=== PATIENT | female | born 1990 | race African-American/Black ===

== ENCOUNTER 2018-06-18 11:42 | Emergency (ER) | payer SELFPAY ==
--- NOTE | 2018-06-18 12:21 | ER Document Report ---
ED Medical Screen (RME) - General Chief Complaint: Psych Problem Stated Complaint: PSYCH EVAL/SUICIDAL IDEATION Time Seen by Provider: 06/18/18 12:16 Mode of Arrival: Ambulatory Information source: Patient TRAVEL OUTSIDE OF THE [place] IN LAST 30 DAYS: No - HPI Patient complains to provider of: K[facility]ON Notes: 06/18/18 12:20 Patient here with mobile crisis due to suicidal ideation. The patient was seen here few days ago for similar symptoms. She was given prescriptions for medications, but she did not fill them as she was afraid she was going to take all of them all at once in an attempt to hurt her self. She states that she hears voices that tell her to hurt herself. No homicidal ideation. Exam No distress, nontoxic. Nonfocal neuro exam. Lungs clear and equal throughout. Heart sounds normal. Plan IVC protocol initiated. An initial examination was made on the patient as part of the triage process, and it was determined a more comprehensive evaluation was necessary. Initial labs were ordered and patient was transferred to another provider in the ED who assumed care and finished evaluation and plan. - Related Data Allergies/Adverse Reactions: amoxicillin Allergy (Verified 06/15/18 10:38) Past Medical History Renal/ Medical History: Denies: Hx Peritoneal Dialysis Psychiatric Medical History: Reports: Hx Anxiety, Hx Depression, Hx Personality Disorder, Hx Post Traumatic Stress Disorder Physical Exam - Vital signs Vitals: Temp Pulse Resp BP Pulse Ox 98.3 F 85 18 115/65 99 06/18/18 11:50 06/18/18 11:50 06/18/18 11:50 06/18/18 11:50 06/18/18 11:50 Course - Vital Signs Vital signs: Temp Pulse Resp BP Pulse Ox 98.3 F 85 18 115/65 99 06/18/18 11:50 06/18/18 11:50 06/18/18 11:50 06/18/18 11:50 06/18/18 11:50
[2018-06-18 12:50] LABS: ABSOLUTE BASOPHILS # (AUTO) 0.1 10^3/uL (0.0-0.2); ABSOLUTE EOSINOPHILS # (AUTO) 0.1 10^3/uL (0.0-0.6); ABSOLUTE LYMPHOCYTES (AUTO) 1.9 10^3/uL (0.5-4.7); ABSOLUTE MONOCYTES (AUTO) 0.4 10^3/uL (0.1-1.4); ABSOLUTE NEUT (AUTO) 2.9 10^3/uL (1.7-8.2); EOSINOPHILS % (AUTO) 1.9 % (0-6); HEMATOCRIT 36.5 % (36.0-47.0); HEMOGLOBIN 12.1 g/dL (12.0-15.5); LYMPHOCYTES % (AUTO) 34.9 % (13-45); MEAN CORPUSCULAR HEMOGLOBIN 29.1 pg (27.0-33.4); MEAN CORPUSCULAR HGB CONC 33.1 g/dL (32.0-36.0); MEAN CORPUSCULAR VOLUME 88 fl (80-97); MONOCYTES % (AUTO) 7.2 % (3-13); PLATELET COUNT 199 10^3/uL (150-450); RED BLOOD COUNT 4.15 10^6/uL (3.72-5.28); RED CELL DISTRIBUTION WIDTH 14.4 % (11.5-14.0); TOTAL CELLS COUNTED % (AUTO) 100 %; WHITE BLOOD COUNT 5.3 10^3/uL (4.0-10.5)
[2018-06-18 12:59] LABS: APPEARANCE,URINE CLEAR; BILIRUBIN,URINE NEGATIVE (NEGATIVE); COLOR,URINE YELLOW; GLUCOSE, URINE NEGATIVE (NEGATIVE); KETONES,URINE NEGATIVE (NEGATIVE); LEUKOCYTE ESTERASE,URINE NEGATIVE (NEGATIVE); NITRITE,URINE NEGATIVE (NEGATIVE); PROTEIN,URINE NEGATIVE (NEGATIVE); URINE SPECIFIC GRAVITY 1.018; UROBILINOGEN,URINE NEGATIVE mg/dL (<2.0)
[2018-06-18 13:06] LABS: ALANINE AMINOTRANSFERASE 20 U/L (9-52); ALBUMIN 4.6 g/dL (3.5-5.0); ALKALINE PHOSPHATASE 72 U/L (38-126); ANION GAP 11 (5-19); ASPARTATE AMINO TRANSFERASE 33 U/L (14-36); BILIRUBIN,DIRECT 0.2 mg/dL (0.0-0.4); BILIRUBIN,TOTAL 0.6 mg/dL (0.2-1.3); BLOOD UREA NITROGEN 11 mg/dL (7-20); CALCIUM 9.6 mg/dL (8.4-10.2); CARBON DIOXIDE 25 mmol/L (22-30); CHLORIDE 105 mmol/L (98-107); GLUCOSE 75 mg/dL (75-110); POTASSIUM 3.9 mmol/L (3.6-5.0); SODIUM 140.8 mmol/L (137-145); TOTAL PROTEIN 8.1 g/dL (6.3-8.2); URINE AMPHETAMINES SCREEN NEGATIVE; URINE BARBITURATES SCREEN NEGATIVE; URINE BENZODIAZEPINES SCREEN NEGATIVE; URINE COCAINE SCREEN NEGATIVE; URINE MARIJUANA (THC) SCREEN UNCONFIRMED POSITIVE; URINE METHADONE SCREEN NEGATIVE; URINE PHENCYCLIDINE SCREEN NEGATIVE
[2018-06-18 13:07] LABS: ACETAMINOPHEN < 10 ug/mL (10-30); ALCOHOL < 10 mg/dL (NONE DETECTED); SALICYLATE < 1.0 mg/dL (2.0-20.0)
--- NOTE | 2018-06-18 15:58 | ER Document Report ---
ED Psych Disorder / Suicide <PARRISHDEMAR - Last Filed: 06/18/18 16:56> - General Mode of Arrival: Ambulatory TRAVEL OUTSIDE OF THE [place].S. IN LAST 30 DAYS: No <DIPTI KIMBLE - Last Filed: 06/18/18 19:17> - General Chief Complaint: Psych Problem Stated Complaint: PSYCH EVAL/SUICIDAL IDEATION Time Seen by Provider: 06/18/18 12:16 Primary Care Provider: [facility] [Outside] - Follow up in 3-5 days [facility] [Outside] - Follow up as needed LOCALMD,NO [Primary Care Provider] - Follow up as needed Notes: Patient says that she is feeling depressed and suicidal. Has been feeling this way for a couple of months. Says she was seen here about 4 days ago and we prescribed Zyprexa. She said that she is concerned she might take those pills. She has tried overdosing on medications in the past. Patient has diagnosis of anxiety, depression, PTSD, and personality disorder. (DIPTI KIMBLE) - Related Data Allergies/Adverse Reactions: amoxicillin Allergy (Verified 06/15/18 10:38) Past Medical History - General Information source: Patient - Social History Smoking Status: Never Smoker Frequency of alcohol use: None Drug Abuse: Marijuana Family History: Reviewed & Not Pertinent Patient has suicidal ideation: Yes Patient has homicidal ideation: No Pulmonary Medical History: Reports: Hx Asthma Renal/ Medical History: Denies: Hx Peritoneal Dialysis Psychiatric Medical History: Reports: Hx Anxiety, Hx Depression, Hx Personality Disorder, Hx Post Traumatic Stress Disorder <DIPTI KIMBLE - Last Filed: 06/18/18 19:17> Review of Systems <DIPTI KIMBLE - Last Filed: 06/18/18 19:17> - Review of Systems Notes: CONSTITUTIONAL : Denies fever. CARDIOVASCULAR: Denies chest pain. RESPIRATORY: Denies cough, chest congestion, or shortness of breath. GASTROINTESTINAL: Denies abdominal pain or nausea, vomiting, or diarrhea. GENITOURINARY: Denies difficulty or painful urinating, urinary frequency, blood in urine. (DIPTI KIMBLE) Physical Exam <DIPTI KIMBLE - Last Filed: 06/18/18 19:17> - Vital signs Vitals: Temp Pulse Resp BP Pulse Ox 98.3 F 85 18 115/65 99 06/18/18 11:50 06/18/18 11:50 06/18/18 11:50 06/18/18 11:50 06/18/18 11:50 Notes: PHYSICAL EXAMINATION: GENERAL: Well-appearing, no acute distress. Appears depressed. HEAD: Atraumatic, normocephalic. NECK: Normal range of motion, supple. LUNGS: Breath sounds clear and equal bilaterally. HEART: Regular rate and rhythm without murmurs heard. ABDOMEN: Soft, nontender. No guarding or rebound or masses felt. (DIPTI KIMBLE) Course - Laboratory Result Diagrams: 06/18/18 12:33 06/18/18 12:33 <DEMAR PARRISH - Last Filed: 06/18/18 16:56> - Laboratory Result Diagrams: 06/18/18 12:33 06/18/18 12:33 <DIPTI KIMBLE - Last Filed: 06/18/18 19:17> - Re-evaluation Re-evalutation: 06/18/18 15:58 Mental health consulted. 06/18/18 19:16 Mental health assessed the patient and feel that she can be discharged and managed as an outpatient. Patient appears to be medically stable for discharge. Kanika Kimble MD (DIPTI KIMBLE) - Vital Signs Vital signs: Temp Pulse Resp BP Pulse Ox 98.2 F 61 18 120/71 100 06/18/18 17:18 06/18/18 17:18 06/18/18 17:18 06/18/18 17:18 06/18/18 17:18 - Laboratory Laboratory results interpreted by me: 06/18/18 06/18/18 12:33 12:33 RDW 14.4 H Salicylates < 1.0 L Acetaminophen < 10 L Discharge <DEMAR PARRISH - Last Filed: 06/18/18 16:56> <DIPTI KIMBLE - Last Filed: 06/18/18 19:17> - Discharge Clinical Impression: Suicidal ideation, Borderline personality disorder Bipolar disorder, unspecified Qualifiers: Active/Remission status: remission status unspecified Qualified Code(s): F31.9 - Bipolar disorder, unspecified Condition: Stable Disposition: HOME, SELF-CARE Additional Instructions: You have been evaluated both medical and behavioral health teams and have been deemed appropriate for discharge. You are highly encouraged to follow through with outpatient mental health services in the form of therapeutic services such as CBT or DBT. CBT and DBT have high success in addressing symptoms for both borderline personality disorder and bipolar disorder such as helping you interpret your environment, identify triggers, and building positive coping skills. If you are concerned about misuse of your prescription medications it is recommended to talk with your outpatient mental health provider about options for a monthly decanoate shot to control your symptoms. At this time, you do not meet involuntary commitment per [facility] and as a medical hospital we are unable to place or transport voluntary placements. AT ANY TIME, IF YOUR SYMPTOMS CHANGE SIGNIFICANTLY OR WORSEN OR YOU DEVELOP NEW SYMPTOMS, RETURN TO THE EMERGENCY DEPARTMENT IMMEDIATELY FOR RE-EVALUATION. Referrals: LOCALMD,NO [Primary Care Provider] - Follow up as needed [facility] [Outside] - Follow up as needed [facility] [Outside] - Follow up in 3-5 days
[2018-06-18 17:21] VITALS: BP 120/71
--- NOTE | 2018-06-18 18:52 | EKG REPORT ---
SEVERITY:- NORMAL ECG - SINUS RHYTHM : Confirmed by: Gisel Donis 18-Jun-2018 18:51:40
== END 2018-06-18 17:26 | disposition home or self-care (01) ==
LOC: ER 11:42
DX: R45.851 Suicidal ideations (principal); F60.3 Borderline personality disorder; F31.9 Bipolar disorder, unspecified; Z88.0 Allergy status to penicillin
CPT/HCPCS: 36415; 80053; 80307; 81001; 84703; 85025; 93005; 93010; 99284

== ENCOUNTER 2018-07-24 11:26 | Emergency (ER) | payer SELFPAY ==
[2018-07-24 11:48] VITALS: BP 115/64
--- NOTE | 2018-07-24 12:05 | ER Document Report ---
ED Medical Screen (RME) - General Chief Complaint: Suicidal Ideation Stated Complaint: PSYCH EVAL Time Seen by Provider: 07/24/18 11:56 Primary Care Provider: SARA MEZA [Primary Care Provider] - Follow up as needed Notes: Patient is a 27-year-old female presents to the emergency department suicidal and homicidal ideations. Patient states she wants to self-harm and also has homicidal ideations. IVC protocol placed. Nurse is currently alerting security to sit with the patient due to her homicidal ideations. GENERAL: Alert, interacts well. Cooperative PSYCH: Flat affect, depressed mood. I have greeted and performed a rapid initial assessment of this patient. A comprehensive ED assessment and evaluation of the patient, analysis of test results and completion of the medical decision making process will be conducted by additional ED providers. This medical record was dictated with voice recognizing software. There may be grammatical, syntax errors that are unintended. TRAVEL OUTSIDE OF THE U.S[place] IN LAST 30 DAYS: No - Related Data Allergies/Adverse Reactions: amoxicillin Allergy (Verified 07/24/18 11:27) Past Medical History - Social History Frequency of alcohol use: None Drug Abuse: Marijuana Pulmonary Medical History: Reports: Hx Asthma Renal/ Medical History: Denies: Hx Peritoneal Dialysis Psychiatric Medical History: Reports: Hx Anxiety, Hx Depression, Hx Personality Disorder, Hx Post Traumatic Stress Disorder Physical Exam - Vital signs Vitals: Temp Pulse Resp BP Pulse Ox 98.6 F 70 17 115/64 100 07/24/18 11:47 07/24/18 11:47 07/24/18 11:47 07/24/18 11:47 07/24/18 11:47 Course - Vital Signs Vital signs: Temp Pulse Resp BP Pulse Ox 98.6 F 70 17 115/64 100 07/24/18 11:47 07/24/18 11:47 07/24/18 11:47 07/24/18 11:47 07/24/18 11:47 Doctor's Discharge - Discharge Referrals: SARA MEZA [Primary Care Provider] - Follow up as needed
[2018-07-24 12:47] LABS: ABSOLUTE EOSINOPHILS # (AUTO) 0.1 10^3/uL (0.0-0.6); ABSOLUTE LYMPHOCYTES (AUTO) 1.7 10^3/uL (0.5-4.7); ABSOLUTE MONOCYTES (AUTO) 0.3 10^3/uL (0.1-1.4); ABSOLUTE NEUT (AUTO) 2.1 10^3/uL (1.7-8.2); BASOPHILS % (AUTO) 1.1 % (0-2); EOSINOPHILS % (AUTO) 2.4 % (0-6); HEMOGLOBIN 12.5 g/dL (12.0-15.5); LYMPHOCYTES % (AUTO) 40.2 % (13-45); MEAN CORPUSCULAR HEMOGLOBIN 28.8 pg (27.0-33.4); MEAN CORPUSCULAR VOLUME 87 fl (80-97); MONOCYTES % (AUTO) 6.7 % (3-13); PLATELET COUNT 234 10^3/uL (150-450); RED BLOOD COUNT 4.36 10^6/uL (3.72-5.28); RED CELL DISTRIBUTION WIDTH 13.4 % (11.5-14.0); SEGMENTED NEUTROPHILS % (AUTO) 49.6 % (42-78); TOTAL CELLS COUNTED % (AUTO) 100 %; WHITE BLOOD COUNT 4.3 10^3/uL (4.0-10.5)
[2018-07-24] MEDS ORDERED: OLANZAPINE 5 MG TABLET PO ONE (12:53)
[2018-07-24 13:04] LABS: ALANINE AMINOTRANSFERASE 19 U/L (9-52); ALBUMIN 4.7 g/dL (3.5-5.0); ALKALINE PHOSPHATASE 81 U/L (38-126); ANION GAP 12 (5-19); ASPARTATE AMINO TRANSFERASE 25 U/L (14-36); BILIRUBIN,DIRECT 0.3 mg/dL (0.0-0.4); BILIRUBIN,TOTAL 0.3 mg/dL (0.2-1.3); BLOOD UREA NITROGEN 12 mg/dL (7-20); CALCIUM 9.6 mg/dL (8.4-10.2); CARBON DIOXIDE 24 mmol/L (22-30); CHLORIDE 106 mmol/L (98-107); GLUCOSE 72 mg/dL (75-110); TOTAL PROTEIN 7.6 g/dL (6.3-8.2)
--- NOTE | 2018-07-24 13:06 | ER Document Report ---
ED Psych Disorder / Suicide <PARRISHDEMAR - Last Filed: 07/24/18 13:25> - General TRAVEL OUTSIDE OF THE [place] IN LAST 30 DAYS: No <DIPTI KIMBLE - Last Filed: 07/24/18 18:43> - General Chief Complaint: Suicidal Ideation Stated Complaint: PSYCH EVAL Time Seen by Provider: 07/24/18 11:56 Primary Care Provider: [facility] [Outside] - Follow up as needed [facility] [Outside] - Follow up as needed LOCAL,NO [NO LOCAL MD] - Follow up as needed Notes: Patient is here because she says she needs refills for her psychiatric medications. She is been out of both her Cogentin and Zyprexa for a couple of weeks. She has been told by her local provider that they cannot see her before sometime in August. Patient denies suicidal ideation. Patient has not been ill in any way recently. No fevers, etc. (DIPTI KIMBLE) - Related Data Allergies/Adverse Reactions: amoxicillin Allergy (Verified 07/24/18 11:27) Past Medical History - Social History Smoking Status: Never Smoker Frequency of alcohol use: None Drug Abuse: Marijuana Family History: Reviewed & Not Pertinent Patient has suicidal ideation: Yes - see nursing note Patient has homicidal ideation: Yes Pulmonary Medical History: Reports: Hx Asthma Psychiatric Medical History: Reports: Hx Anxiety, Hx Depression, Hx Personality Disorder, Hx Post Traumatic Stress Disorder <DIPTI KIMBLE - Last Filed: 07/24/18 18:43> Review of Systems <DIPTI KIMBLE - Last Filed: 07/24/18 18:43> - Review of Systems Notes: CONSTITUTIONAL : Denies fever. CARDIOVASCULAR: Denies chest pain. RESPIRATORY: Denies cough, chest congestion, or shortness of breath. GASTROINTESTINAL: Denies abdominal pain or nausea, vomiting, or diarrhea. GENITOURINARY: Denies difficulty or painful urinating, urinary frequency, blood in urine. (DIPTI KIMBLE) Physical Exam - Vital signs Interpretation: Normal <DIPTI KIMBLE - Last Filed: 07/24/18 18:43> - Vital signs Vitals: Temp Pulse Resp BP Pulse Ox 98.6 F 70 17 115/64 100 07/24/18 11:47 07/24/18 11:47 07/24/18 11:47 07/24/18 11:47 07/24/18 11:47 Notes: PHYSICAL EXAMINATION: GENERAL: Well-appearing, no acute distress. HEAD: Atraumatic, normocephalic. NECK: Normal range of motion, supple. LUNGS: Breath sounds clear and equal bilaterally. HEART: Regular rate and rhythm without murmurs heard. ABDOMEN: Soft, nontender. No guarding or rebound or masses felt. (DIPTI KIMBLE) Course - Laboratory Result Diagrams: 07/24/18 12:17 07/24/18 12:17 <DEMAR PARRISH - Last Filed: 07/24/18 13:25> - Laboratory Result Diagrams: 07/24/18 12:17 07/24/18 12:17 <DIPTI KIMBLE - Last Filed: 07/24/18 18:43> - Vital Signs Vital signs: Temp Pulse Resp BP Pulse Ox 98.6 F 70 17 115/64 100 07/24/18 11:47 07/24/18 11:47 07/24/18 11:47 07/24/18 11:47 07/24/18 11:47 - Laboratory Laboratory results interpreted by me: 07/24/18 07/24/18 12:17 12:17 Glucose 72 L Urine Protein 100 H Urine Blood LARGE H Ur Leukocyte Esterase TRACE H Urine Ascorbic Acid 20 H Salicylates < 1.0 L Acetaminophen < 10 L Discharge <DEMAR PARRISH - Last Filed: 07/24/18 13:25> <DIPTI KIMBLE - Last Filed: 07/24/18 18:43> - Discharge Clinical Impression: Depression Condition: Stable Disposition: HOME, SELF-CARE Additional Instructions: You have been evaluated both medical and behavioral health teams and have been deemed appropriate for discharge. You have been provided a prescription for Zyprexa 5 mg twice daily and Cogentin 1 mg daily; please take as directed. You are encouraged to follow through with your appointment for outpatient mental services with [facility]. DEPRESSION: Your evaluation reveals that you have mental depression. While symptoms may be vague, they often include disturbance of sleep, fatigue, loss of appetite, and general loss of interest in life. While depression may be a side effect of drugs, or a reaction to a major change in your life, many cases have no known cause. If depression is acute, and related to a major loss in your life, you can expect it to clear completely with time. If you have been depressed a long time, are prone to repeated bouts of depression or low mood, or have been thinking of suicide, get help. Depression can be treated with anti-depressant medication and counselling. Long-term depression will often take a few weeks to clear, even with appropriate medication. Follow-up care is important. SUICIDAL IDEATION: Suicidal ideation is a common medical term for thoughts about suicide, which may be as detailed as a formulated plan, without the suicidal act itself. Although most people who undergo suicidal ideation do not commit suicide, some go on to make suicide attempts. The range of suicidal ideation varies greatly from fleeting to detailed planning, role playing, and unsuccessful attempts. While thoughts about suicide are common, most people do not carry out serious actions to commit suicide. Based upon your evaluation and discussion with you, we do not believe you are currently at risk to act upon your thoughts of suicide. You have agreed to return to the Emergency Department, at any time, if you feel inclined to act upon your suicidal thoughts. FOLLOW-UP CARE: If you have been referred to a physician for follow-up care, call the [facility] for an appointment as you were instructed or within the next two days. If you experience worsening or a significant change in your symptoms, notify the physician immediately or return to the Emergency Department at any time for re-evaluation. Prescriptions: Benztropine Mesylate [Cogentin 1 mg Tablet] 1 mg PO DAILY #30 tablet Olanzapine [Zyprexa 5 mg Tablet] 5 mg PO BID #60 tablet Referrals: SUSANA,NO [NO LOCAL MD] - Follow up as needed [facility] [Outside] - Follow up as needed [facility] [[facility]] - Follow up as needed
[2018-07-24 13:09] LABS: ACETAMINOPHEN < 10 ug/mL (10-30); ALCOHOL < 10 mg/dL (NONE DETECTED); SALICYLATE < 1.0 mg/dL (2.0-20.0)
--- NOTE | 2018-07-24 13:11 | PSYCHOLOGICAL NOTE ---
Psych Note - Psych Note Date seen by psych provider: 07/24/18 Time seen by psych provider: 12:45 - 1300 Psych Note: Reason for Consult: Suicidal and Homicidal ideation Patient is a 27-year-old female presents to the emergency department suicidal and homicidal ideations. Patient states she wants to self-harm and also has homicidal ideations. Patient reports that she just got a job at [employer] and has been very excited about this however is looking at having to move. She reports that her father is unable to help her so is been very stressed. She requests assistance in getting back on the medications because she has been unable to start outpatient mental health services. Patient confirms she has contacted [facility] and currently on their wait list for August appointment. Patient discloses that the medication she received from [facility] really helped and is hoping to get assistance in a prescription to help with increased stressors until she can get into outpatient mental services. Patient is alert and orientated to person, place, time and circumstance. Mood is dysphoric with congruent affect. Patient endorses passive suicidal and homicidal ideation i.e. no plans means or intent. Patient confirms this is chronic when not medicated. Delusions are absent behaviors congruent with an intact reality based presentation I organized and linear thought process. Eye contact was well-maintained. Conversational speech is within normal rate, tone and prosody. Intellectual abilities appear to be within the average range. Attention and concentration are good. Insight, judgment, impulse control are currently good as evidenced by patient being able to identify increase in triggers, following up with recommendations, coming to [facility] for assistance until outpatient services can start. Medication recommendations per [facility]'s contracted psychiatrist Dr. Josemanuel EUBANKS are as follows: Zyprexa 5 mg twice daily Cogentin 1 mg daily Borderline personality disorder per history provided by patient Major depressive disorder per history provided by patient PTSD per history provided by patient Impression\plan: Patient is cleared from acute psychiatric services. Patient does not meet IVC criteria per [place] 120 2C. Patient reports passive suicidal and homicidal ideation i.e. no plans means or intent. Patient requests assistance in refilling medications recently provided by the behavioral health team here at [facility]. She discloses they work well however she has not been able to follow-up with outpatient services. Patient confirms she has made contact with [facility] and is currently on their wait list for an appointment in August. Patient identifies positive changes of having a job however reports she is looking at moving and has been stressed and overwhelmed because she must move herself since her father is unable to assist. Patient identified increased stressors and immediately came to the emergency department for further assistance since she is wait listed for outpatient mental health services. Dr. Buckner was consulted and the care management of this patient; attending physicians in agreement with recommendations and disposition.
[2018-07-24 13:16] LABS: APPEARANCE,URINE TURBID; BILIRUBIN,URINE NEGATIVE (NEGATIVE); COLOR,URINE YELLOW; GLUCOSE, URINE NEGATIVE (NEGATIVE); KETONES,URINE NEGATIVE (NEGATIVE); LEUKOCYTE ESTERASE,URINE TRACE (NEGATIVE); NITRITE,URINE NEGATIVE (NEGATIVE); PROTEIN,URINE 100 mg/dL (NEGATIVE); URIC ACID CRYSTALS,URINE MODERATE /HPF; URINE SPECIFIC GRAVITY 1.031; UROBILINOGEN,URINE NEGATIVE mg/dL (<2.0)
[2018-07-24 13:37] LABS: URINE AMPHETAMINES SCREEN NEGATIVE; URINE BARBITURATES SCREEN NEGATIVE; URINE BENZODIAZEPINES SCREEN NEGATIVE; URINE COCAINE SCREEN NEGATIVE; URINE MARIJUANA (THC) SCREEN UNCONFIRMED POSITIVE; URINE METHADONE SCREEN NEGATIVE; URINE PHENCYCLIDINE SCREEN NEGATIVE
--- NOTE | 2018-07-24 17:31 | EKG REPORT ---
SEVERITY:- BORDERLINE ECG - SINUS RHYTHM MINIMAL ST DEPRESSION, INFERIOR LEADS : Confirmed by: Gil Larsen MD 24-Jul-2018 17:30:32
== END 2018-07-24 14:46 | disposition home or self-care (01) ==
LOC: ER 11:26
DX: F32.9 Major depressive disorder, single episode, unspecified (principal); Z88.0 Allergy status to penicillin; Z76.0 Encounter for issue of repeat prescription
CPT/HCPCS: 36415; 80053; 80307; 81001; 84703; 85025; 93005; 93010; 99285

== ENCOUNTER 2018-08-09 10:10 | Emergency (ER) | payer SELFPAY ==
[2018-08-09] MEDS ORDERED: DIPHENHYDRAMINE HCL 50 MG/ML VIAL IV ONE ×2 (10:44→11:22)
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
--- NOTE | 2018-08-09 10:59 | ER Document Report ---
Addendum entered and electronically signed by JERRY SANCHEZ DO 08/10/18 10:51: Discharge - Discharge Clinical Impression: Intentional overdose of drug in tablet form, Suicidal ideations, Marijuana abuse Depression Qualifiers: Depression Type: unspecified Qualified Code(s): F32.9 - Major depressive disorder, single episode, unspecified Condition: Stable Disposition: HOME, SELF-CARE Additional Instructions: Follow up with your [id number] hours for further care or return to the ED IMMEDIATELY if symptoms worsen or you have any concerns. If you cannot afford to follow up with your primary care physician a list of low cost clinics have be en provided at the end of your discharge papers as well. Most prescribed medications have multiple side effects. The safest thing to do is when filling your prescription speak to your pharmacist regarding possible interactions with your normal home medications and over the counter medications such as Ibuprofen, Tylenol, Benadryl. If you experience any symptoms that cause you discomfort or concern you should discontinue the medication immediately and return to the emergency room or call your primary care physician. You have been evaluated both medical and behavioral health teams and been deemed appropriate for discharge. You have an appointment on 08/17/2018 with [facility]; it is highly encouraged to follow through with this appointment. Please discuss engaging in CBT or DBT with your provider to help reinterpret your environment, build positive coping skills, and learn triggers. DEPRESSION: Your evaluation reveals that you have mental depression. While symptoms may be vague, they often include disturbance of sleep, fatigue, loss of appetite, and general loss of interest in life. While depression may be a side effect of drugs, or a reaction to a major change in your life, many cases have no known cause. If depression is acute, and related to a major loss in your life, you can expect it to clear completely with time. If you have been depressed a long time, are prone to repeated bouts of depression or low mood, or have been thinking of suicide, get help. Depression can be treated with anti-depressant medication and counselling. Long-term depression will often take a few weeks to clear, even with appropriate medication. Follow-up care is important. SUICIDAL IDEATION: Suicidal ideation is a common medical term for thoughts about suicide, which may be as detailed as a formulated plan, without the suicidal act itself. Although most people who undergo suicidal ideation do not commit suicide, some go on to make suicide attempts. The range of suicidal ideation varies greatly from fleeting to detailed planning, role playing, and unsuccessful attempts. While thoughts about suicide are common, most people do not carry out serious actions to commit suicide. Based upon your evaluation and discussion with you, we do not believe you are currently at risk to act upon your thoughts of suicide. You have agreed to return to the Emergency Department, at any time, if you feel inclined to act upon your suicidal thoughts. FOLLOW-UP CARE: If you have been referred to a physician for follow-up care, call the physici ans office for an appointment as you were instructed or within the next two days. If you experience worsening or a significant change in your symptoms, notify the physician immediately or return to the Emergency Department at any time for re-evaluation. Referrals: [facility] [Outside] - 08/17/18 [facility] [Outside] - Follow up as needed Scribe Attestation: 08/09/18 11:01 I personally performed the services described in the documentation, reviewed and edited the documentation which was dictated to the scribe in my presence, and it accurately records my words and actions. Addendum entered and electronically signed by DEMAR PARRISH LCSWA 08/10/18 10:44: Discharge - Discharge Clinical Impression: Intentional overdose of drug in tablet form, Suicidal ideations, Marijuana abuse Depression Qualifiers: Depression Type: unspecified Qualified Code(s): F32.9 - Major depressive disorder, single episode, unspecified Condition: Stable Disposition: HOME, SELF-CARE Additional Instructions: You have been evaluated both medical and behavioral health teams and been deemed appropriate for discharge. You have an appointment on 08/17/2018 with [facility]; it is highly encouraged to follow through with this appointment. Please discuss engaging in CBT or DBT with your provider to help reinterpret your environment, build positive coping skills, and learn triggers. DEPRESSION: Your evaluation reveals that you have mental depression. While symptoms may be vague, they often include disturbance of sleep, fatigue, loss of appetite, and general loss of interest in life. While depression may be a side effect of drugs, or a reaction to a major change in your life, many cases have no known cause. If depression is acute, and related to a major loss in your life, you can expect it to clear completely with time. If you have been depressed a long time, are prone to repeated bouts of depression or low mood, or have been thinking of suicide, get help. Depression can be treated with anti-depressant medication and counselling. Long-term depression will often take a few weeks to clear, even with appropriate medication. Follow-up care is important. SUICIDAL IDEATION: Suicidal ideation is a common medical term for thoughts about suicide, which may be as detailed as a formulated plan, without the suicidal act itself. Although most people who undergo suicidal ideation do not commit suicide, some go on to make suicide attempts. The range of suicidal ideation varies greatly from fleeting to detailed planning, role playing, and unsuccessful attempts. While thoughts about suicide are common, most people do not carry out seri ous actions to commit suicide. Based upon your evaluation and discussion with you, we do not believe you are currently at risk to act upon your thoughts of suicide. You have agreed to return to the Emergency Department, at any time, if you feel inclined to act upon your suicidal thoughts. FOLLOW-UP CARE: If you have been referred to a physician for follow-up care, call the physicians office for an appointment as you were instructed or within the next two days. If you experience worsening or a significant change in your symptoms, notify the physician immediately or return to the Emergency Department at any time for re-evaluation. Referrals: [facility] [Outside] - Follow up as needed [facility] [Outside] - 08/17/18 Scribe Attestation: 08/09/18 11:01 I personally performed the services described in the documentation, reviewed and edited the documentation which was dictated to the scribe in my presence, and it accurately records my words and actions. Original Note: Entered by SOULEYMANE BURGESS SCRIBE 08/09/18 1045 Acting as scribe for:TYRONE FORBES MD ED Psych Disorder / Suicide - General Chief Complaint: Overdose Stated Complaint: POSSIBLE OVERDOSE Time Seen by Provider: 08/09/18 10:21 Mode of Arrival: Medic Information source: Patient, [facility] Records Notes: 28-year-old female that presents to the emergency department today after an attempted overdose just prior to arrival. Patient reports taking approximately #30 5mg Zyprexa at around 1000 this morning. Patient states that she began to panic over her living situation this morning which is what caused her to become suicidal this morning. Patient states her father got a job here approximately x2 months ago and she moved here with him. The patient has been seen here x3 prior times over the last x2 months for psychiatric evaluations and she does endorse being depressed for several months. Patient states that her father is now moving to [place] and she will no longer have a place to stay here. Patient states her mom lives in [place]. Patient states that her father will not be taking her with him to [place] and her mother will not let her move in with her in [place]. Patient states she has been taking her Zyprexa and Cogentin as prescribed. TRAVEL OUTSIDE OF THE [place] IN LAST 30 DAYS: No - Related Data Allergies/Adverse Reactions: amoxicillin Allergy (Verified 07/24/18 11:27) Past Medical History - General Information source: Patient, [facility] Records - Social History Smoking Status: Never Smoker Cigarette use (# per day): No Chew tobacco use (# tins/day): No Frequency of alcohol use: None Drug Abuse: None Occupation: [employer] Lives with: Parents - currently, but father is leaving town and she will be homeless Family History: Reviewed & Not Pertinent Pulmonary Medical History: Reports: Hx Asthma Psychiatric Medical History: Reports: Hx Anxiety, Hx Depression, Hx Personality Disorder, Hx Post Traumatic Stress Disorder Surgical Hx: Negative Review of Systems - Review of Systems Constitutional: See HPI, Other - Reports taking approximately #30 5mg zyprexa just prior to arrival at 1000 EENT: No symptoms reported Cardiovascular: No symptoms reported Respiratory: No symptoms reported Gastrointestinal: No symptoms reported Genitourinary: No symptoms reported Female Genitourinary: Last menstrual period - July 22 Musculoskeletal: No symptoms reported Skin: No symptoms reported Hematologic/Lymphatic: No symptoms reported Neurological/Psychological: See HPI, Depression, Anxiety, Suicidal ideation -: Yes All other systems reviewed and negative Physical Exam - Vital signs Vitals: Resp Pulse Ox 17 100 08/09/18 10:24 08/09/18 10:24 - Notes Notes: Physical Exam: General: Tearful. See psych exam. HEENT: Normocephalic. Atraumatic. PERRL. Extraocular movements intact. Oropharynx clear. Neck: Supple. Non-tender. Respiratory: No respiratory distress. Clear and equal breath sounds bilaterally. Cardiovascular: Regular rate and rhythm. Abdominal: Normal Inspection. Non-tender. No distension. Normal Bowel Sounds. Back: Non-tender. No deformity or step off. Extremities: Moves all four extremities. Upper extremities: Normal inspection. Normal ROM. Lower extremities: Normal inspection. No edema. Normal ROM. Neurological: Normal cognition. AAOx4. Normal speech. Psychological: Depressed. Flat affect. Anxious. Tearful. Skin: Warm. Dry. Normal color. Course - Re-evaluation Re-evalutation: 08/09/18 14:53 There was recommendation from the psychology staff to give long-acting Haldol IM along with Cogentin daily and Zyprexa 5 mg twice daily. Given that the half- life of Zyprexa is 21 to 54 hours, and we feel confident that she did ingest at least 10 tablets, she will be supratherapeutic for at least the next 2 to 3 days. We will hold on the antipsychotics for now and just use benzos for control of the patient. - Vital Signs Vital signs: Temp Pulse Resp BP Pulse Ox 99.7 F 23 H 124/68 99 08/09/18 10:40 08/09/18 13:10 08/09/18 13:11 08/09/18 10:41 - Laboratory Result Diagrams: 08/09/18 10:42 08/09/18 10:42 Laboratory results interpreted by me: 08/09/18 08/09/18 08/09/18 10:42 10:42 10:42 Lymphocytes % 47.2 H Ur Leukocyte Esterase SMALL H Salicylates < 1.0 L Acetaminophen < 10 L - EKG Interpretation by Hi EKG shows normal: Sinus rhythm, Ava, Intervals, QRS Complexes, ST-T Waves Rate: Normal - 87 Rhythm: NSR - Transfer of Care Care transferred to following provider: Dr. Joann Cotto Discharge - Discharge Clinical Impression: Intentional overdose of drug in tablet form, Suicidal ideations, Marijuana abuse Depression Qualifiers: Depression Type: unspecified Qualified Code(s): F32.9 - Major depressive disorder, single episode, unspecified Condition: Stable Disposition: PSYCH HOSP/UNIT Scribe Attestation: 08/09/18 11:01 I personally performed the services described in the documentation, reviewed and edited the documentation which was dictated to the scribe in my presence, and it accurately records my words and actions. I personally performed the services described in the documentation, reviewed and edited the documentation which was dictated to the scribe in my presence, and it accurately records my words and actions.
[2018-08-09 11:00] LABS: ABSOLUTE EOSINOPHILS # (AUTO) 0.1 10^3/uL (0.0-0.6); ABSOLUTE LYMPHOCYTES (AUTO) 2.4 10^3/uL (0.5-4.7); ABSOLUTE MONOCYTES (AUTO) 0.4 10^3/uL (0.1-1.4); ABSOLUTE NEUT (AUTO) 2.1 10^3/uL (1.7-8.2); BASOPHILS % (AUTO) 0.7 % (0-2); EOSINOPHILS % (AUTO) 2.1 % (0-6); HEMATOCRIT 38.4 % (36.0-47.0); HEMOGLOBIN 12.8 g/dL (12.0-15.5); LYMPHOCYTES % (AUTO) 47.2 % (13-45); MEAN CORPUSCULAR HEMOGLOBIN 28.9 pg (27.0-33.4); MEAN CORPUSCULAR HGB CONC 33.3 g/dL (32.0-36.0); MEAN CORPUSCULAR VOLUME 87 fl (80-97); PLATELET COUNT 232 10^3/uL (150-450); RED BLOOD COUNT 4.42 10^6/uL (3.72-5.28); RED CELL DISTRIBUTION WIDTH 13.3 % (11.5-14.0); TOTAL CELLS COUNTED % (AUTO) 100 %; WHITE BLOOD COUNT 5.1 10^3/uL (4.0-10.5)
[2018-08-09 11:11] LABS: APPEARANCE,URINE CLEAR; BILIRUBIN,URINE NEGATIVE (NEGATIVE); COLOR,URINE STRAW; GLUCOSE, URINE NEGATIVE (NEGATIVE); KETONES,URINE NEGATIVE (NEGATIVE); LEUKOCYTE ESTERASE,URINE SMALL (NEGATIVE); NITRITE,URINE NEGATIVE (NEGATIVE); PROTEIN,URINE NEGATIVE (NEGATIVE); URINE SPECIFIC GRAVITY 1.008; UROBILINOGEN,URINE NEGATIVE mg/dL (<2.0)
[2018-08-09 11:18] LABS: ALANINE AMINOTRANSFERASE 26 U/L (9-52); ALBUMIN 4.3 g/dL (3.5-5.0); ALKALINE PHOSPHATASE 83 U/L (38-126); ANION GAP 6 (5-19); ASPARTATE AMINO TRANSFERASE 36 U/L (14-36); BILIRUBIN,DIRECT 0.3 mg/dL (0.0-0.4); BILIRUBIN,TOTAL 0.3 mg/dL (0.2-1.3); BLOOD UREA NITROGEN 11 mg/dL (7-20); CALCIUM 9.1 mg/dL (8.4-10.2); CARBON DIOXIDE 26 mmol/L (22-30); CHLORIDE 107 mmol/L (98-107); GLUCOSE 88 mg/dL (75-110); SODIUM 139.4 mmol/L (137-145); TOTAL PROTEIN 7.9 g/dL (6.3-8.2)
[2018-08-09 11:22] LABS: ACETAMINOPHEN < 10 ug/mL (10-30); ALCOHOL < 10 mg/dL (NONE DETECTED); SALICYLATE < 1.0 mg/dL (2.0-20.0)
[2018-08-09 11:37] LABS: URINE AMPHETAMINES SCREEN NEGATIVE; URINE BARBITURATES SCREEN NEGATIVE; URINE BENZODIAZEPINES SCREEN NEGATIVE; URINE COCAINE SCREEN NEGATIVE; URINE MARIJUANA (THC) SCREEN UNCONFIRMED POSITIVE; URINE METHADONE SCREEN NEGATIVE; URINE PHENCYCLIDINE SCREEN NEGATIVE
[2018-08-09] MEDS ORDERED: LORAZEPAM INJ 2 MG/1 ML VIAL IV ONE (12:35)
[2018-08-09] MEDS ORDERED: DEXTROSE 5%-LACTATED RINGERS 1,000 ML IV ONE (12:35)
[2018-08-09] MEDS ORDERED: NORMAL SALINE 1000 ML 1,000 ML IV ONE (16:20)
[2018-08-09] MEDS ORDERED: NORMAL SALINE 1000 ML 1,000 ML IV PRN (16:24)
--- NOTE | 2018-08-09 20:31 | ER Document Report ---
Doctor's Note Notes: 08/09/18 20:31 Patient is no longer tachycardic. Her blood pressure has remained stable. She is alert and mentating appropriately. She is medically cleared at this point for further psychiatric evaluation
[2018-08-09 20:34] VITALS: BP 93/68
--- NOTE | 2018-08-09 23:02 | EKG REPORT ---
SEVERITY:- NORMAL ECG - SINUS RHYTHM LVH : Confirmed by: Gisel Donis 09-Aug-2018 23:02:18
--- NOTE | 2018-08-10 09:37 | ER Document Report ---
Doctor's Note Notes: 08/10/18 09:36 HPI: 28-year-old female that presents to the emergency department today after an attempted overdose just prior to arrival. Patient reports taking approximately #30 5mg Zyprexa at around 1000 this morning. Patient states that she began to panic over her living situation this morning which is what caused her to become suicidal this morning. Patient states her father got a job here approximately x2 months ago and she moved here with him. The patient has been seen here x3 prior times over the last x2 months for psychiatric evaluations and she does endorse being depressed for several months. Patient states that her father is now moving to [place] and she will no longer have a place to stay here. Patient states her mom lives in [place]. Patient states that her father will not be taking her with him to [place] and her mother will not let her move in with her in [place]. Patient states she has been taking her Zyprexa and Cogentin as prescribed. As the rounding physician this AM, I assessed the patient's labs, vitals, and records. No concerning findings this morning. Patient denies any acute compl aints. Patient is cleared for disposition by [facility]. Father is at the bedside and is comfortable with the patient coming home. She will have follow-up with [facility]. PHYSICAL EXAMINATION: GENERAL: Well-appearing, well-nourished and in no acute distress. HEAD: Atraumatic, normocephalic. EYES: Pupils equal round extraocular movements intact, conjunctiva are normal. ENT: Nares patent NECK: Normal range of motion LUNGS: No respiratory distress Musculoskeletal: Normal range of motion NEUROLOGICAL: Normal speech, normal gait. PSYCH: Normal mood, normal affect. SKIN: Warm, Dry, normal turgor, no rashes or lesions noted.
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
== END 2018-08-10 11:00 | disposition home or self-care (01) ==
LOC: ER 10:10
DX: T43.592A Poisoning by other antipsychotics and neuroleptics, intentional self-harm, initial encounter (principal); F32.9 Major depressive disorder, single episode, unspecified; Y92.9 Unspecified place or not applicable; Z79.899 Other long term (current) drug therapy
CPT/HCPCS: 93005; 96376; 99285; 96361; 96374; 96375; 36415; 80307 ×4; 84703; 85025; 80053; 81001; 93010; J1200; J2060; J7121; J7030